=== PATIENT | male | born 1990 | race Caucasian/White ===

== ENCOUNTER 2018-07-20 23:40 | Emergency (ER) | payer SELFPAY ==
[~2018-07-20] VITALS: Ht 187.9 cm; Wt 122.5 kg
[2018-07-21] MEDS ORDERED: CEPACOL SORE T1 EACH MM (00:45)
== END 2018-07-21 01:16 | disposition home or self-care (01) ==
LOC: ED 23:40
DX: J02.9 Acute pharyngitis, unspecified (principal); Z88.0 Allergy status to penicillin